=== PATIENT | female | born 1985 | race Caucasian/White ===

== ENCOUNTER 2021-03-06 13:06 | Emergency (ER) | payer MEDICAID, SELFPAY ==
[2021-03-06 13:13] VITALS: BP 92/49; PULSE 60; RESP 14; TEMP 36.4; O2SAT 96
[2021-03-06 13:26] VITALS: BP 103/63; PULSE 68; RESP 17; O2SAT 99
--- NOTE | 2021-03-06 13:50 | W.ED.WOUNDLC ---
HPI - Wound/Laceration General: Chief Complaint: Wound/Laceration Stated Complaint: facial lac Time Seen by Provider: 03/06/21 13:19 History of Present Illness: HPI narrative: Patient presents with laceration to right cheek. Patient was cutting a deer open and had the knife going up through the neck of the deer and it pulled through and struck her in the right cheek. Patient is active bleeding. No other injuries. Onset (ago): minute(s) Location: face Place: home Patient tetanus UTD: Yes Context: accidental Associated symptoms: Reports no associated symptoms; Denies chills or fever(s) Treatments prior to arrival: bandage Review of Systems Const: Denies: fever(s) or chills Skin/Breast: Reports: other (Laceration right cheek) Psych: Denies: anxiety [facility] ED PFSH: Medical History (Updated 03/06/21 @ 13:49 by COOPER Miller) No pertinent past medical history Denies history of: Diabetes, asthma, hypertension, seizures, DVT/PE PCP: Does not have a PMD. She was encouraged to find one-options reviewed. Surgical History (Updated 08/13/19 @ 14:01 by Kaley Vargas RN) History of dental surgery with general sedation Family History (Updated 08/13/19 @ 14:02 by Kaley Vargas RN) Denies family history of Colon cancer Ovarian cancer Diabetes Heart disease Hyperlipidemia Breast cancer Hypertension Uterine cancer Thyroid condition Stroke Social History (Updated 08/13/19 @ 14:03 by Kaley Vargas RN) Smoking and tobacco status: former smoker Alcohol intake: unknown Additional social history: - Tobacco Use: Used to smoke about a pack of cigarettes over one month. Stop smoking cigarettes in June 2014. Continues to remain off of cigarettes. 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 Physical Exam Const: COMMON NORMALS: no acute distress GENERAL APPEARANCE: cooperative Psych: COMMON NORMALS: mental status grossly normal Skin: NARRATIVE SKIN EXAM: laceration 2.5 cm right cheek irregular vertical Procedures Laceration Laceration 1: Site: face Size (cm): 2.5 Description: linear, irregular and clean Depth: simple, single layer Local Anesthetic: lidocaine 1% Amount of anesthesia used (mL): 3 Pre-repair: wound explored and deep structures intact Skin layer closed with: vicryl Size (cm): 5-0 Number of sutures: 12 Technique: simple, interrupted Course Vital Signs: Vital signs: Vital Signs Temperature 97.5 F L 03/06/21 13:13 Pulse Rate 68 03/06/21 13:26 Respiratory Rate 17 03/06/21 13:26 Blood Pressure 103/63 03/06/21 13:26 Pulse Oximetry 99 03/06/21 13:26 Discharge Plan Discharge Patient Disposition: Home Clinical Impression: Laceration Condition: Stable Prescriptions: New hydrocodone-acetaminophen 5-325 mg tablet 1 tab PO TID PRN (Reason: pain) Qty: 7 RF: 0 cephalexin 500 mg capsule 500 mg PO Q8H 7 Days Qty: 21 RF: 0 Discharge Orders: Discharge ED (Routine); Ordered 03/06/21 Ordered By: Navin Arambula Discharge Diet: Usual diet Discharge Activity: Resume usual activity Patient Instructions: Care For Your Stitches (ED), Laceration (ED), Opioid Safety Activity Restrictions/Additional Instructions: Have sutures removed in 5 days. Keep area of wound moist with vitamin E E are Vaseline are petroleum jelly. Keep area dressed. Follow-up of any worsening symptoms with your family medical provider return here. You can go to urgent care or your primary care to get your sutures out. 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
[2021-03-06] MEDS: TRAMadol 50 mg Tablet PO (14:19)
[2021-03-06] MEDS: lidocaine 1% INJ 20 mL INTRADERMA (14:19)
[2021-03-06 14:20] VITALS: BP 120/74; PULSE 62; RESP 18; O2SAT 98
== END 2021-03-06 14:20 | disposition home or self-care (01) ==
PROVIDERS: Emergency Provider Nurse Practitioner Family
DX: S01.411A Laceration without foreign body of right cheek and temporomandibular area, initial encounter (principal); W26.0XXA Contact with knife, initial encounter; Z87.891 Personal history of nicotine dependence
CPT/HCPCS: 12011; 99283